=== PATIENT | female | born 1985 | race Caucasian/White ===

== ENCOUNTER 2017-09-24 11:27 | Emergency (ER) | payer SELFPAY ==
[2017-09-24 11:28] VITALS: BP 135/89; PULSE 99; RESP 16; TEMP 36.3; O2SAT 100; BMI 22.8
== END 2017-09-24 12:45 | disposition home or self-care (01) ==
LOC: ED 12:40
PROVIDERS: Emergency Provider Emergency Medicine; Family Provider Family Medicine; PCP Family Medicine
DX: R69 Illness, unspecified (principal)

== ENCOUNTER 2018-02-19 14:04 | Emergency (ER) | payer MEDICAID, SELFPAY ==
[2018-02-19 14:05] VITALS: BP 148/90; PULSE 101; RESP 17; TEMP 36.1; O2SAT 100; BMI 24.1
--- NOTE | 2018-02-19 14:22 | ED.VISSUMM ---
- ER Visit Summary Date of Service: 02/19/18 Chief Complaint: [] Intermittent right upper quadrant pain, history of hepatitis C gallstones Suboxone therapy for heroin and other narcotic abuse History of Present Illness: The patient is a 32 F [] has had intermittent right upper quadrant pain for a long time possibly a month, she indicates in the past which has been evaluated for this she is been told is related to her gallbladder she has gallstones is been recommended she have her gallbladder removed but she has declined that, she indicates that usually when she has flareups like this she is treated with antibiotics and her gallbladder pain goes away. She is followed by [facility], her physicians are aware of all the above she indicates she had recent tests for her liver and other screening studies either by the [facility] physicians or her Suboxone therapy physicians that were unremarkable, she was told related to her hepatitis C that she should get on anti-hepatitis C therapy but she has not followed up to do that yet, she has had no vomiting no fever no cough normal bowel bladder habits, she does have a history of distant IVDA heroin abuse but she is not abusing drugs for over a year and she is completely compliant by her history with all of her her Suboxone follow-up and treatment protocol Physical Examination: [] 149/90, afebrile General, no distress resting comfortably HEENT is generally unremarkable The neck is supple no adenopathy Cardiovascular, regular rate and rhythm Lungs, clear bilateral Abdomen, soft nontender she indicates when she does have the pain is in her right upper abdomen but there is no findings on physical exam Extremities, no clubbing cyanosis or edema Neurologic, awake alert answering questions appropriately moving all 4 extremities Test Results: [] Emergency Department Course and Treatment: [] The patient is asking that I simply give her antibiotics for this intermittent pain that she is having explained her that is not the usual therapy, I explained to her we can obtain IV fluids screening labs other imaging studies etc. and then proceed from there she declined that she understood the concept of worsening symptoms complications of gallbladder disease and gallstones, complications that are and could be life threatening complication from hepatitis C she is awake alert competent she is basically refusing ED evaluation prefers to follow-up with her [facility] physicians She indicates that initially she was afraid to pursue further therapy for the hep C or the gallbladder disease such as surgery, at this time I explained her that she should follow-up with physicians as above and she is agreed to do so she will be given Naprosyn which she is able to take Zofran bland diet and return for change in symptoms Treatment Plan: [] Disposition: [] Home stable declined ED evaluation Impression: [] Intermittent right upper quadrant pain, reported history of hepatitis C, gallstones, Suboxone therapy for narcotic drug abuse This note was generated with [employer] dictation software. It may contain incorrect words, spelling, and punctuation that were not noted in review of the chart prior to signing ED Disposition - Plan for ED Patient: Chief Complaint: Abd Pain Referrals: Garret Rees MD [Primary Care Provider] -
--- NOTE | 2018-02-19 14:26 | ED.DCSUM_ITS ---
- ER Visit Summary Date of Service: 02/19/18 Chief Complaint: [] Intermittent right upper quadrant pain, history of hepatitis C gallstones Suboxone therapy for heroin and other narcotic abuse History of Present Illness: The patient is a 32 F [] has had intermittent right upper quadrant pain for a long time possibly a month, she indicates in the past which has been evaluated for this she is been told is related to her gallbladder she has gallstones is been recommended she have her gallbladder removed but she has declined that, she indicates that usually when she has flareups like this she is treated with antibiotics and her gallbladder pain goes away. She is followed by [facility], her physicians are aware of all the above she indicates she had recent tests for her liver and other screening studies either by the [facility] physicians or her Suboxone therapy physicians that were unremarkable, she was told related to her hepatitis C that she should get on anti-hepatitis C therapy but she has not followed up to do that yet, she has had no vomiting no fever no cough normal bowel bladder habits, she does have a history of distant IVDA heroin abuse but she is not abusing drugs for over a year and she is completely compliant by her history with all of her her Suboxone follow-up and treatment protocol Physical Examination: [] 149/90, afebrile General, no distress resting comfortably HEENT is generally unremarkable The neck is supple no adenopathy Cardiovascular, regular rate and rhythm Lungs, clear bilateral Abdomen, soft nontender she indicates when she does have the pain is in her right upper abdomen but there is no findings on physical exam Extremities, no clubbing cyanosis or edema Neurologic, awake alert answering questions appropriately moving all 4 extremities Test Results: [] Emergency Department Course and Treatment: [] The patient is asking that I simply give her antibiotics for this intermittent pain that she is having explained her that is not the usual therapy, I explained to her we can obtain IV fluids screening labs other imaging studies etc. and then proceed from there she declined that she understood the concept of worsening symptoms complications of gallbladder disease and gallstones, complications that are and could be life threatening complication from hepatitis C she is awake alert competent she is basically refusing ED evaluation prefers to follow-up with her [facility] physicians She indicates that initially she was afraid to pursue further therapy for the hep C or the gallbladder disease such as surgery, at this time I explained her that she should follow-up with physicians as above and she is agreed to do so she will be given Naprosyn which she is able to take Zofran bland diet and return for change in symptoms Treatment Plan: [] Disposition: [] Home stable declined ED evaluation Impression: [] Intermittent right upper quadrant pain, reported history of hepatitis C, gallstones, Suboxone therapy for narcotic drug abuse This note was generated with [employer] dictation software. It may contain incorrect words, spelling, and punctuation that were not noted in review of the chart prior to signing ED Disposition - Plan for ED Patient: Chief Complaint: Abd Pain Referrals: Garret Rees MD [Primary Care Provider] -
--- NOTE | 2018-02-19 14:26 | ED.DEP ---
ED Disposition - Plan for ED Patient: Chief Complaint: Abd Pain Instructions: ED Abdominal Pain Unkn Cause, ED Abdominal Pain Gallstone Poss Prescriptions: Ondansetron [Zofran Odt] 4 mg PO Q8H PRN PRN #10 tab PRN Reason: Nausea Naproxen [Naprosyn] 500 mg PO BID PRN #20 tab Referrals: Garret Rees MD [Primary Care Provider] - Additional Instructions: Please follow-up with your [facility] providers for further management of your symptoms as soon as possible
[2018-02-19 14:35] VITALS: TEMP 36.6
== END 2018-02-19 14:48 | disposition home or self-care (01) ==
LOC: ED 14:31
PROVIDERS: Emergency Provider Emergency Medicine; Family Provider Family Medicine; PCP Family Medicine
DX: R10.11 Right upper quadrant pain (principal); B19.20 Unspecified viral hepatitis C without hepatic coma; K80.80 Other cholelithiasis without obstruction; Z87.898 Personal history of other specified conditions; Z79.891 Long term (current) use of opiate analgesic; Z53.29 Procedure and treatment not carried out because of patient's decision for other reasons
CPT/HCPCS: 99282

== ENCOUNTER 2018-03-14 00:57 | Emergency (ER) | payer MEDICAID, SELFPAY ==
[2018-03-14 01:00] VITALS: BP 138/85; PULSE 112; RESP 18; TEMP 37; O2SAT 99; BMI 24.3
--- NOTE | 2018-03-14 01:26 | ED.DCSUM_ITS ---
- ER Visit Summary Date of Service: 03/14/18 Chief Complaint: Facial rash History of Present Illness: The patient is a 32 F presenting for evaluation secondary to a facial rash. Patient reports that over the course of the last week she had a small zit at the angle of her right sided mandible. She reports that she tried to pop this, but over the last 2 days it has become more swollen and more painful. She denies any constitutional symptoms such as fever. She states there is been some spreading rash going down the right side of her neck. Physical Examination: Patient had some triage tachycardia with a heart rate of 112. Well-nourished female no acute distress well-appearing sitting comfortably in the bed. Head is normocephalic. There is evidence of an ulcer at the angle of the patient's right mandible with about 2 cm of surrounding induration but no documents. There is some Descending lymphadenopathy and lymph adenitis on the skin of the anterior cervical lymph nodes, but the neck is otherwise supple with normal range of motion. Test Results: None indicated Emergency Department Course and Treatment: Patient presented secondary to a skin infection. There is no evidence of significant systemic infection or LaMere syndrome. There is also no evidence of fluctuance on my exam, no indication for incision and drainage. Patient will be treated with a course of doxycycline and was instructed on warm compresses and follow-up with primary care. Disposition: Discharge Impression: Facial cellulitis This note was generated with [employer] dictation software. It may contain incorrect words, spelling, and punctuation that were not noted in review of the chart prior to signing ED Disposition - Plan for ED Patient: Disposition: Home or Assisted Living Chief Complaint: Abscess Diagnosis: Facial cellulitis Instructions: ED Cellulitis Facial Prescriptions: Doxycycline 100 mg PO BID #20 cap Referrals: Garret Rees MD [Primary Care Provider] - 3-5 Days
[2018-03-14] MEDS: Doxycycline 100 MG CAPSULE PO (01:33)
[2018-03-14 01:34] VITALS: PULSE 87; RESP 18; O2SAT 98
== END 2018-03-14 01:34 | disposition home or self-care (01) ==
PROVIDERS: Emergency Provider Emergency Medicine; Family Provider Family Medicine; PCP Family Medicine
DX: L03.211 Cellulitis of face (principal); Z72.0 Tobacco use
CPT/HCPCS: 99283

== ENCOUNTER 2018-05-15 13:17 | Observation (INO) | payer MEDICAID, SELFPAY ==
[2018-05-15 13:56] VITALS: BMI 24.4
[2018-05-15 14:00] VITALS: BP 124/89; PULSE 95; RESP 16; TEMP 36.9
--- NOTE | 2018-05-15 14:04 | PCM.HP.STD ---
Problem List (1) Tobacco dependence Status: Chronic Comment: 1 pack/day (2) Cellulitis of left hand Status: Acute (3) Moderate benzodiazepine use disorder Status: Chronic (4) Hepatitis C Status: Chronic Comment: Has never been treated (5) Pyelonephritis Status: Acute (6) Anxiety Status: Chronic (7) Cholelithiasis Status: Chronic (8) Depression Status: Chronic (9) Opiate dependence Status: Chronic (10) Bipolar disorder Status: Chronic History of Present Illness Date of Admission: 05/15/18 Chief Complaint: Presented to the [facility] office requesting inpatient admission for medical stabilization for EtOH, narcotic and benzodiazepine withdrawal The patient is a 33 year old F with a past medical history of bipolar disorder and hepatitis C who presented to the [facility] office at [facility] on 05/15/2018 requesting inpatient admission for medical stabilization for withdrawal from opiates, EtOH and benzodiazepines. She is currently using 1-3 g of intravenous heroin daily, drinking a liter of bourbon daily and taking Benzodiazepines at least 15 days of the month. She is also taking gabapentin and generally takes more than she is prescribed. She is prescribed 300 mg 3 times daily. She usually takes at least 600 mg 3 times daily. The benzo is whatever she can get and includes Klonopin, Xanax, Ativan. She occasionally uses methamphetamine and crack. She smokes 1 pack of cigarettes per day. She is living with her parents and her 8 YO old son also lives with the parents. The grandparents have custody. She was in detox 1 year ago in [place]. She has been clean and sober off and on over the past 10 years. She tells me that she has been using at least 6 months now and possibly longer. She has been using her hands recently to inject and has erythema and pain on the left at the lateral wrist. She denies fevers and rigors but is feeling hot and cold due to the withdrawal at present. She used heroin last night at approximately 10 PM. She had a Xanax to help her sleep and she had bourbon prior to coming to the hospital. She denies nausea and has no no vomiting. or diarrhea. She denies any hx of DT's and also denies seizures. She is being admitted to the hospital for medical stabilization for acute withdrawal from alcohol, opiates and benzodiazepines. Admits to not taking the Lamictal, Seroquel and Elavil that she is prescribed for BPD......because they make her gain weight Past Medical History Past Medical History (Chronic Problems): Chronic Problems Tobacco dependence (Chronic) 1 pack/day Moderate benzodiazepine use disorder (Chronic) Hepatitis C (Chronic) Has never been treated Bipolar disorder (Chronic) Anxiety (Chronic) Depression (Chronic) Opiate dependence (Chronic) Cholelithiasis (Chronic) Allergies No Known Allergies Allergy (Verified 03/14/18 00:58) Home Medications: Ambulatory Orders Medication Instructions Recorded Amitriptyline HCl 50 - 100 mg PO QHS 12/29/16 Topiramate [Topamax] 50 mg PO DAILY 12/29/16 Acetaminophen [Tylenol Extra 1,000 mg PO Q8H PRN #1 tablet 02/02/17 Strength] Quetiapine Fumarate [Quetiapine 150 mg PO QHS 02/02/17 Fumarate ER] busPIRone [Buspirone HCl] 15 mg PO TID 02/02/17 Ondansetron [Zofran Odt] 4 mg PO Q8H PRN PRN #10 tab 02/19/18 Buprenorphine HCl/Naloxone HCl 1.5 each SL DAILY 03/14/18 [Suboxone 2 mg-0.5 mg Sl Film] Doxycycline 100 mg PO BID #20 cap 03/14/18 Surgical History: - - Gastric sleeve, bilateral breast implants and butt lift Psychiatric History: Anxiety, Bipolar, Depression [employer] History: - - Months. In years as she is on depo shots Lives: With Family Smoking Status: Current every day smoker Tobacco Use: Cigarettes Alcohol: Heavy - 1 L of bourbon daily Drugs: Heroin, - - Benzodiazepines, crack, methamphetamine - *Family History Maternal History Items: Heart Disease, Hypertension, - Review of Systems Constitutional: Reports: Malaise. Denies: Anorexia, Chills, Fever, Weight Change HEENT: Denies: Head Aches, Sinus Congestion, Sinus Drainage Cardiovascular: Denies: Chest Pain, Palpitations Respiratory: Denies: Cough, Shortness of breath at rest, Sputum production Gastrointestinal: Reports: Constipation. Denies: Abdominal Pain, Diarrhea, Nausea, Vomiting Genitourinary: Denies: Dysuria Gynecological: Reports: - - periods are irregular Musculoskeletal: Reports: Muscle pain. Denies: Joint Pain, Joint Tenderness Skin: Reports: - - she has an erythematous area on the lateral left wrist.. Denies: Jaundice, Rash, Wounds Neurological: Denies: Focal weakness, Numbness, Tingling, Tremor, Seizures Psychiatric: Denies: Anxiety, Depression, Homicidal Ideations, Suicidal Ideations Endocrine: Denies: Change in Body Habitus Hematologic/ Lymphatic: Denies: Easy Bruising, Easy Bleeding, Hx of blood clot VTE Information - Inpt Only VTE Present on Admission: No VTE Mechan Device Prophylaxis: None VTE Pharm Prophylaxis ordered?: No Reason prophylaxis not ordered:: Treatment Not Indicated - pt is young and she is amulatory Patient Problems: Active and Suspected Problems Cellulitis of left hand (Acute) - Physical Exam General: Alert, Oriented x3, Cooperative, No apparent distress, Well developed HEENT: Atraumatic, PERRLA, EOMI, Normocephalic Oral: Moist Mucosa Neck: Supple, No JVD, Negative Carotid Bruits, No Nodes, No Nuchal Rigidity, Trachea Midline Lungs: Clear to auscultation, Normal air movement Cardiovascular: Regular rate, Regular Rhythm, Normal S1, Normal S2, No murmurs, No rub noted, No Gallop Abdomen: Bowel Sounds Present, Soft, Non Tender, Non-Distended Extremities: No clubbing, No cyanosis, No edema, Capillary Refill Less than 3 Seconds, Peripheral Pulses Normal Skin: No rashes, No breakdown, - - she has an area of erythema and increased warmth on the lateral aspect of the left wrist.....there is no fluctuance and no purulent discharge. Musculoskeletal: No Tenderness to Palpation of Joints or Extremities, No Muscle Wasting Neurological: Cranial nerves II-XII grossly intact, Neuro grossly intact Psych/Mental Status: Normal Affect, Appropriate, - - tearful Body Mass Index (BMI) 24.3 Assessment/Plan All Active Problems Cellulitis of left hand (Acute) Pyelonephritis (Acute) Sepsis (Ruled-out) Impressions 1. acute opiate withdrawal 2. acute ETOH withdrawal 3. hx of BPD - non-compliant with meds because they make her gain weight 4. hep C - rarely shares needles, only when she has to 5. tobacco dependence 6. cellulitis of the left hand/wrist CBC, CMP, urine drug screen, alcohol level test initiate general admission orders for [facility] patients Intiate order set for opiate withdrawal and alcohol withdrawal [facility] rep to follow pt in the hospital and develop a plan for treatment at [place] smoking cessation counselling CLonidine for HTN if sys>150 or diastolic > 85 Hepatitis ABC panel, HIV Continue Gabapentin to prevent acute withdrawal....300 mg BID and 600 mg at HS Augmentin 875 mg BID
[2018-05-15] MEDS: Acetaminophen 500 MG Tablet PO (14:39)
[2018-05-15 15:27] LABS: Amphetamine Urine VISTA NEGATIVE (<1000 ng/mL); Barbiturate Urine VISTA NEGATIVE (< 200 ng/mL); Benzodiazepine Urine VISTA POSITIVE (< 200 ng/mL); Cocaine Urine VISTA POSITIVE (< 300 ng/mL); Ecstacy Urine VISTA NEGATIVE (< 500 ng/mL); Methadone Urine VISTA NEGATIVE (< 300 ng/mL); PCP Urine VISTA NEGATIVE (< 25 ng/mL); THC Urine VISTA NEGATIVE (< 50 ng/mL); Vista UDS pH Range 5
[2018-05-15 15:54] LABS: Internal QC Validated? YES +Cl - CLEAR BKGD; Pregnancy, Urine Negative Negative
[2018-05-15] MEDS: LORazepam 1 MG Tablet PO ×3 (16:01→22:11)
[2018-05-15] MEDS: Ondansetron ODT 4 MG Tablet PO ×2 (16:01→22:11)
[2018-05-15] MEDS: Methocarbamol 750 MG Tablet PO (16:01)
[2018-05-15] MEDS: Buprenorphine HCl 2 MG TAB.SUBL 4 MG SL ×2 (16:02→22:11)
[2018-05-15 16:39] LABS: Absolute Lymphocyte Count 3.69 X10^3/ul (0.83-4.51); Absolute Neutrophil Count 4.9 X10^3/uL (2.0-7.7); Basophil# 0.05 X10^3/uL; Basophil% 0.5 % (0-1); Eosinophil# 0.42 X10^3/uL; Eosinophils% 4.4 % (0-5); Hematocrit 32.1 % (37-47); Hemoglobin 10.1 g/dl (12.0-15.0); Lymphocyte # 3.69 X10^3/ul (4.0); Lymphocyte % 38.3 % (19-41); Mean Corp Hgb Conc 31.5 g/gl (32-36); Mean Corpuscular Volume 95.3 fL (81-99); Mean Platelet Vol. 8.5 fl (6.2-12.0); Monocyte# 0.58 X10^3/uL; Neutrophil # 4.87 X10^3/uL (2.7-7.7); Neutrophil % 50.6 % (47-70); POSITIVE COUNT NO; POSITIVE DIFFERENTIAL NO; POSITIVE MORPHOLOGY NO; Platelet Count 340 K/mm3 (150-450); RBC Distribution Width SD 55.9 fl (35.1-43.9); Red Blood Count 3.37 M/mm3 (4.2-5.4); White Blood Count 9.6 K/mm3 (4.4-11.0)
[2018-05-15 16:43] LABS: Prothrombin Time (Protime)PT. 12.9 SECONDS (11.7-14.9)
[2018-05-15] MEDS: Amox/Clavulanate 875 MG Tablet PO ×2 (16:44→22:12)
[2018-05-15] MEDS: Gabapentin 300 MG Capsule PO (16:47)
[2018-05-15 16:51] LABS: ALB/GLOB Ratio 0.7 RATIO (0.9-2.4); AST(SGOT) 24 U/L (15-37); Alanine Aminotransfer ALT/SGPT 26 U/L (13-56); Albumin, Serum 2.8 g/dL (3.2-5.0); Alkaline Phosphatase 97 U/L (45-117); Anion Gap 7 (5-15); BUN 6 mg/dL (7-18); Chloride 110 mmol/L (98-107); Creatinine, Serum 0.67 mg/dL (0.55-1.02); EST Glomerular Filtration Rate 109 mL/min (>60); Est Glom Filt Rate - Afr Amer 132 mL/min (>60); Globulin 4.3 g/dL (2.2-4.2); Glucose 112 mg/dL (74-106); Potassium 3.1 mmol/L (3.5-5.1); Protein, Total 7.1 g/dL (6.4-8.2); Sodium Level 144 mmol/L (136-145)
[2018-05-15 17:04] LABS: Alcohol, Blood (Medical)-Serum < 3.0 mg/dL
[2018-05-15 17:19] LABS: Pregnancy, Serum, hCG Quali. NEGATIVE Negative (0-9 Nonpreg)
[2018-05-15 18:09] LABS: HIV - WCH Non-Reactive (Nonreactive)
[2018-05-15 18:58] VITALS: BP 111/70; PULSE 103; RESP 14; TEMP 37.3
--- NOTE | 2018-05-15 19:33 | NURSING ---
pt home meds are locked in narc [facility] med room
[2018-05-15 22:00] VITALS: BP 122/83; PULSE 89; RESP 18; TEMP 36.4
[2018-05-15] MEDS: cloNIDine HCl 0.1 MG Tablet PO (22:11)
[2018-05-15] MEDS: Dicyclomine 10 MG Capsule 20 MG PO (22:11)
[2018-05-15] MEDS: Nicotine Polacrilex 2 MG GUM PO (22:11)
[2018-05-15] MEDS: Gabapentin 600 MG Tablet PO (22:12)
[2018-05-15] MEDS: hydrOXYzine PAM 25 MG Capsule 50 MG PO (23:15)
[2018-05-16 02:00] VITALS: BP 115/78; PULSE 90; RESP 18; TEMP 36.6
[2018-05-16] MEDS: cloNIDine HCl 0.1 MG Tablet PO ×3 (02:27→10:02)
[2018-05-16] MEDS: Methocarbamol 750 MG Tablet PO (02:27)
[2018-05-16] MEDS: LORazepam 1 MG Tablet PO ×3 (02:27→09:58)
[2018-05-16] MEDS: Buprenorphine HCl 2 MG TAB.SUBL 4 MG SL (06:47)
[2018-05-16 06:49] VITALS: BP 126/82; PULSE 92; RESP 18; TEMP 36.6
[2018-05-16 09:56] VITALS: BP 109/68; PULSE 86; RESP 18; TEMP 36.7
[2018-05-16] MEDS: hydrOXYzine PAM 25 MG Capsule 50 MG PO (09:58)
[2018-05-16] MEDS: Gabapentin 300 MG Capsule PO (09:59)
[2018-05-16] MEDS: Amox/Clavulanate 875 MG Tablet PO (09:59)
[2018-05-16] MEDS: Multivitamins,Therapeutic Tablet 1 TABLET PO (09:59)
[2018-05-16] MEDS: Dicyclomine 10 MG Capsule 20 MG PO (09:59)
[2018-05-16] MEDS: Folic Acid 1 MG Tablet PO (10:00)
[2018-05-16] MEDS: Thiamine Hydrochloride 100 MG Tablet PO (10:00)
[2018-05-16] MEDS: Ondansetron ODT 4 MG Tablet PO (10:02)
--- NOTE | 2018-05-16 11:12 | PN_ITS ---
Subjective: All events of the past 24 hours have been reviewed. Afebrile, vital signs stable. Hemoglobin is mildly decreased at 10.1 with a normal MCV but an increased RDW at 16. Potassium was low at 3.1. Urine test was negative. Urine drug screen is positive for opiates, benzodiazepines and cocaine. Hepatitis panel is pending. HIV is nonreactive. Tells me that she is not doing well and she is requesting we increase the Suboxone dose. Wants he mother to take her home but, the mother told her she has to stay and she would not be taking her home. Security had to be called to get her to give the mother back her car keys. The patient's son is with her mother and the patient is trying to manipulate the son into saying he needs her at home......he tells her he wants her to stay and then is huddled up against his grandmother. Mother left with the son and the pt left AMA after that. She left her meds in the hospital. - Physical Exam Vital Signs Temp Pulse Resp BP 98.1 F 86 18 109/68 05/16/18 09:56 05/16/18 09:56 05/16/18 09:56 05/16/18 09:56 Weight: 160 lb 8 oz Body Mass Index (BMI) 24.4 Intake and Output for Last 24 Hours 05/14/18 05/15/18 05/16/18 23:59 23:59 23:59 Intake Total 400 / 400 360 / 360 Balance 400 / 400 360 / 360 Laboratory Tests Past 24 Hrs 05/15/18 05/15/18 05/15/18 14:35 14:35 16:15 WBC RBC Hgb Hct MCV MCH MCHC RDW RDW Differential Plt Count MPV Immature Gran % (Auto) Neut % (Auto) Lymph % (Auto) [place] % (Auto) Eos % (Auto) Baso % (Auto) Absolute Neuts (auto) Absolute Lymphs (auto) Total Counted PT INR Sodium Potassium Chloride Carbon Dioxide Anion Gap BUN Creatinine Estim Creat Clear Calc Est GFR (MDRD) Af Amer Est GFR (MDRD) Non-Af BUN/Creatinine Ratio Glucose Calcium Total Bilirubin AST ALT Alkaline Phosphatase Total Protein Albumin Globulin Albumin/Globulin Ratio Serum , Qual Urine Test Negative Urine Opiates Screen POSITIVE H Urine Methadone Screen NEGATIVE Ur Barbiturates Screen NEGATIVE Ur Phencyclidine Scrn NEGATIVE Ur Amphetamines Screen NEGATIVE U Methamphetamin-MDMA NEGATIVE U Benzodiazepines Scrn POSITIVE H Urine Cocaine Screen POSITIVE H U Cannabinoids Screen NEGATIVE Ur Drug Screen Comment Ethyl Alcohol Hepatitis A IgM Ab Pending Hepatitis A Ab Total Pending Hep Bs Antigen Pending Hep B Core Total Ab Pending Hep B Core IgM Ab Pending HIV 1&2 Antibody 05/15/18 05/15/18 05/15/18 16:15 16:15 16:15 WBC 9.6 RBC 3.37 L Hgb 10.1 L Hct 32.1 L MCV 95.3 MCH 30.0 MCHC 31.5 L RDW 16.0 H RDW Differential 55.9 H Plt Count 340 MPV 8.5 Immature Gran % (Auto) 0.200 Neut % (Auto) 50.6 Lymph % (Auto) 38.3 [place] % (Auto) 6.0 Eos % (Auto) 4.4 Baso % (Auto) 0.5 Absolute Neuts (auto) 4.9 Absolute Lymphs (auto) 3.69 Total Counted Not Reportable PT 12.9 INR 1.0 Sodium Potassium Chloride Carbon Dioxide Anion Gap BUN Creatinine Estim Creat Clear Calc Est GFR (MDRD) Af Amer Est GFR (MDRD) Non-Af BUN/Creatinine Ratio Glucose Calcium Total Bilirubin AST ALT Alkaline Phosphatase Total Protein Albumin Globulin Albumin/Globulin Ratio Serum , Qual Urine Test Urine Opiates Screen Urine Methadone Screen Ur Barbiturates Screen Ur Phencyclidine Scrn Ur Amphetamines Screen U Methamphetamin-MDMA U Benzodiazepines Scrn Urine Cocaine Screen U Cannabinoids Screen Ur Drug Screen Comment Ethyl Alcohol Hepatitis A IgM Ab Hepatitis A Ab Total Hep Bs Antigen Hep B Core Total Ab Hep B Core IgM Ab HIV 1&2 Antibody Non-Reactive 05/15/18 05/15/18 05/15/18 16:15 16:15 16:15 WBC RBC Hgb Hct MCV MCH MCHC RDW RDW Differential Plt Count MPV Immature Gran % (Auto) Neut % (Auto) Lymph % (Auto) [place] % (Auto) Eos % (Auto) Baso % (Auto) Absolute Neuts (auto) Absolute Lymphs (auto) Total Counted PT INR Sodium 144 Potassium 3.1 L Chloride 110 H Carbon Dioxide 27.0 Anion Gap 7 BUN 6 L Creatinine 0.67 Estim Creat Clear Calc 121.60 Est GFR (MDRD) Af Amer 132 Est GFR (MDRD) Non-Af 109 BUN/Creatinine Ratio 9.0 L Glucose 112 H Calcium 8.0 L Total Bilirubin 0.10 L AST 24 ALT 26 Alkaline Phosphatase 97 Total Protein 7.1 Albumin 2.8 L Globulin 4.3 H Albumin/Globulin Ratio 0.7 L Serum , Qual NEGATIVE Urine Test Urine Opiates Screen Urine Methadone Screen Ur Barbiturates Screen Ur Phencyclidine Scrn Ur Amphetamines Screen U Methamphetamin-MDMA U Benzodiazepines Scrn Urine Cocaine Screen U Cannabinoids Screen Ur Drug Screen Comment Ethyl Alcohol < 3.0 Hepatitis A IgM Ab Hepatitis A Ab Total Hep Bs Antigen Hep B Core Total Ab Hep B Core IgM Ab HIV 1&2 Antibody Medical Necessity - Tobacco Use Smoking Status: Current every day smoker Tobacco Use: Cigarettes Assessment/Plan All Active Problems Cellulitis of left hand (Acute) Pyelonephritis (Acute) Sepsis (Ruled-out)
--- NOTE | 2018-05-16 11:44 | NURSING ---
Dr. Cárdenas made aware that pt left AMA.
--- NOTE | 2018-05-16 18:34 | DS.PCM_ITS ---
Discharge Date and Diagnosis Date of Admission: 05/15/18 Date of Discharge: 05/16/18 - Primary Discharge Diagnosis Acute opiate withdrawal Acute EtOH withdrawal Hypokalemia Mild cellulitis left wrist - Secondary Discharge Diagnosis Chronic Problems Tobacco dependence (Chronic) 1 pack/day Moderate benzodiazepine use disorder (Chronic) Hepatitis C (Chronic) Has never been treated Bipolar disorder (Chronic)-noncompliant with medication because she states they make her gain weight Anxiety (Chronic) Depression (Chronic) Opiate dependence (Chronic) Cholelithiasis (Chronic) Hospital Course and Treatment Imaging Results: Laboratory Tests 05/15/18 05/15/18 05/15/18 Range/Units 16:15 16:15 16:15 WBC (4.4-11.0) K/mm3 RBC (4.2-5.4) M/mm3 Hgb (12.0-15.0) g/dl Hct (37-47) % MCV (81-99) fL MCH (27.0-32.0) pg MCHC (32-36) g/gl RDW (11.6-14.6) % RDW Differential (35.1-43.9) fl Plt Count (150-450) K/mm3 MPV (6.2-12.0) fl Immature Gran % (Auto) (0.0-0.9) % Neut % (Auto) (47-70) % Lymph % (Auto) (19-41) % [place] % (Auto) (0-10) % Eos % (Auto) (0-5) % Baso % (Auto) (0-1) % Absolute Neuts (auto) (2.0-7.7) X10^3/uL Absolute Lymphs (auto) (0.83-4.51) X10^3/ul Total Counted PT (11.7-14.9) SECONDS INR Sodium 144 (136-145) mmol/L Potassium 3.1 L (3.5-5.1) mmol/L Chloride 110 H (98-107) mmol/L Carbon Dioxide 27.0 (21.0-32.0) mmol/L Anion Gap 7 (5-15) BUN 6 L (7-18) mg/dL Creatinine 0.67 (0.55-1.02) mg/dL Estim Creat Clear Calc 121.60 ml/min Est GFR (MDRD) Af Amer 132 (>60) mL/min Est GFR (MDRD) Non-Af 109 (>60) mL/min BUN/Creatinine Ratio 9.0 L (10-20) RATIO Glucose 112 H (74-106) mg/dL Calcium 8.0 L (8.5-10.1) mg/dL Total Bilirubin 0.10 L (0.20-1.00) mg/dL AST 24 (15-37) U/L ALT 26 (13-56) U/L Alkaline Phosphatase 97 (45-117) U/L Total Protein 7.1 (6.4-8.2) g/dL Albumin 2.8 L (3.2-5.0) g/dL Globulin 4.3 H (2.2-4.2) g/dL Albumin/Globulin Ratio 0.7 L (0.9-2.4) RATIO Serum , Qual NEGATIVE (0-9 Nonpreg) Negative Urine Test Negative Urine Opiates Screen (< 300 ng/mL) Urine Methadone Screen (< 300 ng/mL) Ur Barbiturates Screen (< 200 ng/mL) Ur Phencyclidine Scrn (< 25 ng/mL) Ur Amphetamines Screen (<1000 ng/mL) U Methamphetamin-MDMA (< 500 ng/mL) U Benzodiazepines Scrn (< 200 ng/mL) Urine Cocaine Screen (< 300 ng/mL) U Cannabinoids Screen (< 50 ng/mL) Ur Drug Screen Comment Ethyl Alcohol < 3.0 mg/dL HIV 1&2 Antibody (Nonreactive) 05/15/18 05/15/18 05/15/18 Range/Units 16:15 16:15 16:15 WBC 9.6 (4.4-11.0) K/mm3 RBC 3.37 L (4.2-5.4) M/mm3 Hgb 10.1 L (12.0-15.0) g/dl Hct 32.1 L (37-47) % MCV 95.3 (81-99) fL MCH 30.0 (27.0-32.0) pg MCHC 31.5 L (32-36) g/gl RDW 16.0 H (11.6-14.6) % RDW Differential 55.9 H (35.1-43.9) fl Plt Count 340 (150-450) K/mm3 MPV 8.5 (6.2-12.0) fl Immature Gran % (Auto) 0.200 (0.0-0.9) % Neut % (Auto) 50.6 (47-70) % Lymph % (Auto) 38.3 (19-41) % [place] % (Auto) 6.0 (0-10) % Eos % (Auto) 4.4 (0-5) % Baso % (Auto) 0.5 (0-1) % Absolute Neuts (auto) 4.9 (2.0-7.7) X10^3/uL Absolute Lymphs (auto) 3.69 (0.83-4.51) X10^3/ul Total Counted Not Reportable PT 12.9 (11.7-14.9) SECONDS INR 1.0 Sodium (136-145) mmol/L Potassium (3.5-5.1) mmol/L Chloride (98-107) mmol/L Carbon Dioxide (21.0-32.0) mmol/L Anion Gap (5-15) BUN (7-18) mg/dL Creatinine (0.55-1.02) mg/dL Estim Creat Clear Calc ml/min Est GFR (MDRD) Af Amer (>60) mL/min Est GFR (MDRD) Non-Af (>60) mL/min BUN/Creatinine Ratio (10-20) RATIO Glucose (74-106) mg/dL Calcium (8.5-10.1) mg/dL Total Bilirubin (0.20-1.00) mg/dL AST (15-37) U/L ALT (13-56) U/L Alkaline Phosphatase (45-117) U/L Total Protein (6.4-8.2) g/dL Albumin (3.2-5.0) g/dL Globulin (2.2-4.2) g/dL Albumin/Globulin Ratio (0.9-2.4) RATIO Serum , Qual (0-9 Nonpreg) Negative Urine Test Negative Urine Opiates Screen (< 300 ng/mL) Urine Methadone Screen (< 300 ng/mL) Ur Barbiturates Screen (< 200 ng/mL) Ur Phencyclidine Scrn (< 25 ng/mL) Ur Amphetamines Screen (<1000 ng/mL) U Methamphetamin-MDMA (< 500 ng/mL) U Benzodiazepines Scrn (< 200 ng/mL) Urine Cocaine Screen (< 300 ng/mL) U Cannabinoids Screen (< 50 ng/mL) Ur Drug Screen Comment Ethyl Alcohol mg/dL HIV 1&2 Antibody Non-Reactive (Nonreactive) 05/15/18 05/15/18 Range/Units 14:35 14:35 WBC (4.4-11.0) K/mm3 RBC (4.2-5.4) M/mm3 Hgb (12.0-15.0) g/dl Hct (37-47) % MCV (81-99) fL MCH (27.0-32.0) pg MCHC (32-36) g/gl RDW (11.6-14.6) % RDW Differential (35.1-43.9) fl Plt Count (150-450) K/mm3 MPV (6.2-12.0) fl Immature Gran % (Auto) (0.0-0.9) % Neut % (Auto) (47-70) % Lymph % (Auto) (19-41) % [place] % (Auto) (0-10) % Eos % (Auto) (0-5) % Baso % (Auto) (0-1) % Absolute Neuts (auto) (2.0-7.7) X10^3/uL Absolute Lymphs (auto) (0.83-4.51) X10^3/ul Total Counted PT (11.7-14.9) SECONDS INR Sodium (136-145) mmol/L Potassium (3.5-5.1) mmol/L Chloride (98-107) mmol/L Carbon Dioxide (21.0-32.0) mmol/L Anion Gap (5-15) BUN (7-18) mg/dL Creatinine (0.55-1.02) mg/dL Estim Creat Clear Calc ml/min Est GFR (MDRD) Af Amer (>60) mL/min Est GFR (MDRD) Non-Af (>60) mL/min BUN/Creatinine Ratio (10-20) RATIO Glucose (74-106) mg/dL Calcium (8.5-10.1) mg/dL Total Bilirubin (0.20-1.00) mg/dL AST (15-37) U/L ALT (13-56) U/L Alkaline Phosphatase (45-117) U/L Total Protein (6.4-8.2) g/dL Albumin (3.2-5.0) g/dL Globulin (2.2-4.2) g/dL Albumin/Globulin Ratio (0.9-2.4) RATIO Serum , Qual (0-9 Nonpreg) Negative Urine Test Negative Negative Urine Opiates Screen POSITIVE H (< 300 ng/mL) Urine Methadone Screen NEGATIVE (< 300 ng/mL) Ur Barbiturates Screen NEGATIVE (< 200 ng/mL) Ur Phencyclidine Scrn NEGATIVE (< 25 ng/mL) Ur Amphetamines Screen NEGATIVE (<1000 ng/mL) U Methamphetamin-MDMA NEGATIVE (< 500 ng/mL) U Benzodiazepines Scrn POSITIVE H (< 200 ng/mL) Urine Cocaine Screen POSITIVE H (< 300 ng/mL) U Cannabinoids Screen NEGATIVE (< 50 ng/mL) Ur Drug Screen Comment Ethyl Alcohol mg/dL HIV 1&2 Antibody (Nonreactive) none Operations: None Procedures: None Summary of Care Provided: The patient is a 33 year old F with a past medical history of bipolar disorder, hepatitis C, tobacco dependence, opiate dependence and moderate benzodiazepine use disorder who presented to the [facility] at [facility] on 05/15/2018 requesting inpatient admission for medical stabilization for withdrawal from opiates, EtOH and benzodiazepines. She stated she took benzodiazepines a few times a week. At the time of presentation she was noted to have a small area of cellulitis on the left lateral wrist with no purulent discharge and no open wound. This is where she has been injecting and it was erythematous and warm to touch. She was admitted to the [facility] program and the [facility] protocol for opiate withdrawal and EtOH withdrawal was initiated. Lab at admission showed a decreased hemoglobin at 10.1, decreased potassium at 3.1 and was otherwise unremarkable. Serum was negative. The drug screen was positive for opiates, benzodiazepines and cocaine. HIV was negative. Hepatitis panel is pending. Testing was supplemented. Approximately 24 hours after admission the patient pleaded with her mother to take her home with her and her mother stood her ground and told her she would not take her home but could not control if she left AGAINST MEDICAL ADVICE. She did explain to her daughter that she would put her things out on the porch and she could pick them up when she wanted to. Security had to be called to retrieve the mother's car keys from the patient when she would not give them up. The mother left with the patient's son and the patient left AGAINST MEDICAL ADVICE shortly after that. She was drowsy when I saw her in the room but, was able to ambulate. She would not allow me to examine her. I attempted to de-escalate the situation and have the mother and son leave but, the pt would not listen and would not calm down, raciel after I explained she could not have a double dose of Suboxone. She was not diaphoretic and not tachycardic, tachypneic or hypertensive. This note was generated with [employer] dictation software. It may contain incorrect words, spelling, and punctuation that were not noted in checking the note before signing. - Physical Exam Vital Signs Temp Pulse Resp BP 98.1 F 86 18 109/68 05/16/18 09:56 05/16/18 09:56 05/16/18 09:56 05/16/18 09:56 Weight: 160 lb 8 oz Body Mass Index (BMI) 24.4 Intake and Output for Last 24 Hours 05/14/18 05/15/18 05/16/18 23:59 23:59 23:59 Intake Total 400 / 400 360 / 360 Balance 400 / 400 360 / 360 Home Medications: Medications to take at Discharge Amitriptyline HCl 50 - 100 mg PO QHS 12/29/16 Quetiapine Fumarate [Quetiapine Fumarate ER] 300 mg PO QHS 02/02/17 Gabapentin [Neurontin] 300 mg PO TID 05/15/18 Lamotrigine [Lamictal] 100 mg PO DAILY 05/15/18 Primary Care Physician: Garret Rees MD [Primary Care Provider] - Disposition: Against Medical Advice Minutes spent on discharge:: 30 Patient Condition:: Stable Medical Necessity - Tobacco Use Smoking Status: Current every day smoker Tobacco Use: Cigarettes Meaningful Use Info Meaningful Use Diagnoses (Choose all that apply): None applicable Code Visit Inpatient E&M: 28061 Disch Hosp
[2018-05-17 17:13] LABS: HEPATITIS B SURFACE AG Negative (Negative); Hepatitis A AB, Total Negative (Negative); Hepatitis A IgM Antibody Negative (Negative); Hepatitis B Core AB IgM Negative (Negative); Hepatitis B Core Ab Total Negative (Negative)
[2018-05-18 11:17] LABS: Hep B Surface Antibodies Reactive (.)
[2018-05-18 11:41] LABS: Hepatitis C Ab >11.0 s/co ratio (0.0-0.9)
== END 2018-05-16 11:43 | disposition left against medical advice (07) | DRG 770 ==
PROVIDERS: Admitting Provider Internal Medicine; Family Provider Family Medicine; PCP Family Medicine; Referring Provider Internal Medicine; Visit Provider Internal Medicine
DX: F11.23 Opioid dependence with withdrawal (principal); F10.239 Alcohol dependence with withdrawal, unspecified; E87.6 Hypokalemia; L03.114 Cellulitis of left upper limb; F17.210 Nicotine dependence, cigarettes, uncomplicated; F13.239 Sedative, hypnotic or anxiolytic dependence with withdrawal, unspecified; F31.9 Bipolar disorder, unspecified; F41.9 Anxiety disorder, unspecified; Z91.14 Patient's other noncompliance with medication regimen; K80.20 Calculus of gallbladder without cholecystitis without obstruction; B18.2 Chronic viral hepatitis C; Z79.899 Other long term (current) drug therapy
CPT/HCPCS: 36415; 80053; 80307; 80320; 81025; 84703; 85025; 85610; 86703; 86704; 86705; 86706; 86708; 86709; 86803; 87340; 99218; G0378; G0379; G0480

== ENCOUNTER 2019-08-13 20:01 | Emergency (ER) | payer MEDICAID, SELFPAY ==
[2018-05-15 13:56] VITALS: BMI 24.4
[2019-08-13 20:02] VITALS: BP 120/74; PULSE 88; RESP 18; TEMP 36.7; O2SAT 99; BMI 27.7
--- NOTE | 2019-08-13 20:19 | ED.DCSUM_ITS ---
- ER Visit Summary Date of Service: 08/13/19 Chief Complaint: Left flank pain History of Present Illness: The patient is a 34 F past medical history of prior gallstones. Prior and breast implants. Patient states she has had left flank pain which gradual onset for about a week. Associated nausea vomiting. Urinary frequency and urgency. Last menstrual period she said she has not had one for years since she had implanted control. She denies any vaginal bleeding or discharge. She denies any fever. She denies any trauma. She is never had a kidney stone. She denies any gross hematuria. She was sent to [facility]. She is taken some type of [id number] medication and they told her that her UA was inconclusive. And sent her to the ER. Physical Examination: Female no acute distress vital signs stable afebrile. H EENT exam unremarkable. Neck nontender no lymphadenopathy. Lungs clear to auscultation bilaterally. Heart regular rhythm no murmur. Abdomen soft nontender, nondistended normal bowel sounds no peritoneal signs. No hernias or masses. No signs of obstruction. Patient moving all 4 extremities. Neurovascular intact. Nontender without edema. Back nontender no CVA tenderness. Skin unremarkable. Multiple tattoos. Neurologically she is awake and alert with no focal motor deficits. Test Results: Urinalysis shows positive nitrates, 25-50 white cells, 10-25 red cells and 2+ bacteria. Consistent with a UTI. Urine culture sent. Urine test negative. Emergency Department Course and Treatment: Patient's history and exam are consistent with more of a gradual onset of symptoms. Clinically and historically I do not think this is a kidney stone. We will start with a urinalysis. Repeat exam patient doing well at 8:56 PM. She will be given a p.o. Keflex and discharged to home. A urine culture was sent. Treatment Plan: Fluids and rest. Tylenol Motrin for pain. Keflex 750 twice daily for 5 days. Follow-up with her primary care physician if not improving. Disposition: Discharge Impression: Acute left flank pain secondary to UTI This note was generated with [employer] software. It may contain incorrect words, spelling, and punctuation that were not noted in review of the chart prior to signing ED Disposition - Plan for ED Patient: Referrals: Garret Rees MD [Primary Care Provider] -
[2019-08-13 20:29] LABS: Mucous, Urine 0 SEEN /hpf (<or=2+)
[2019-08-13 20:34] LABS: Color, Urine Red (Yellow); Glucose, Dipstick Normal (Normal); Ketone-Dipstick 5 mg/dl (Negative); Leukocyte Esterase-Dipstick 100 /ul (Negative); Nitrite-Dipstick Positive (Negative); Occult Blood-Urine 150 /ul (Negative); Protein-Dipstick 30 mg/dl (Negative); Specific Gravity, Urine 1.015 (1.002-1.030); Urine Urobilinogen 8 mg/dl (Normal)
[2019-08-13 20:39] LABS: Internal QC Validated? YES +Cl - CLEAR BKGD; Pregnancy, Urine Negative Negative; Urine Bilirubin Dipstick 6 mg/dL (Negative)
[2019-08-13 20:40] LABS: Urine Clarity Cloudy (Clear)
[2019-08-13 20:42] LABS: White Blood Cells 25-50 SEEN /hpf (0-5)
[2019-08-13 20:43] LABS: Red Blood Cells-Urine 10-25 SEEN /hpf (0-5)
[2019-08-13 20:44] LABS: Bacteria 2+ /hpf (None Seen); Squamous Epithelial Cells - UA 10-25 SEEN /hpf (5-10)
--- NOTE | 2019-08-13 20:58 | ED.DEP ---
ED Disposition - Plan for ED Patient: Disposition: Home or Assisted Living Instructions: ED CYSTITIS Female Adult Prescriptions: Cephalexin [Keflex] 750 mg PO BID #10 cap Prescription Printed Referrals: Garret Rees MD [Primary Care Provider] - 3-5 Days if not improving Additional Instructions: Fluids and rest. Tylenol and Motrin for pain. The antibiotic Keflex 1 pill twice a day for 5 days. Follow-up with your doctor if not improving. Clinically this appears to be a urinary tract infection should be taken care of by the antibiotic. If not improving then may need to either change antibiotic or give it for a longer period of time.
[2019-08-13] MEDS: Cephalexin 250 MG Capsule 750 MG PO (21:04)
== END 2019-08-13 21:05 | disposition home or self-care (01) ==
PROVIDERS: Emergency Provider Emergency Medicine; PCP Family Medicine
DX: N39.0 Urinary tract infection, site not specified (principal); Z87.19 Personal history of other diseases of the digestive system; Z72.0 Tobacco use
CPT/HCPCS: 81001; 81025; 87077; 87086; 87088; 87186; 99283

== ENCOUNTER 2022-04-05 19:28 | Emergency (ER) | payer MEDICAID, SELFPAY ==
[2022-04-05 19:29] VITALS: BP 126/82; PULSE 84; RESP 16; TEMP 36.4; O2SAT 100; BMI 22.1
--- NOTE | 2022-04-05 22:38 | ED.RN ---
PT NOT IN WAITING ROOM OR ANYWHERE IN TRIAGE AREA. SHE HAD STATED INITIALLY DURING THAT SHE MIGHT NO WAIT TOO LONG AND WOULD JUST LEAVE IF IT TOOK TOO LONG FOR A ROOM.
== END 2022-04-05 21:30 | disposition left against medical advice (07) ==
LOC: ED 22:58
PROVIDERS: PCP Family Medicine
DX: R69 Illness, unspecified (principal); Z53.21 Procedure and treatment not carried out due to patient leaving prior to being seen by health care provider

== ENCOUNTER 2022-04-11 16:11 | Inpatient (IN) | payer MEDICAID, SELFPAY ==
[2022-04-11 16:12] VITALS: BP 117/83; PULSE 83; RESP 18; TEMP 37.1; O2SAT 91; BMI 25.1
--- NOTE | 2022-04-11 16:56 | EX.ED.SAOD ---
HPI History of Present Illness Chief Complaint: Substance Abuse Informant: patient Narrative Narrative: History is a little bit difficult. Although the patient is awake and eating, she gets distracted easily and is not the best informant for details. It sounds like she is under a court order from [place] to go through detox and a substance abuse program. She called [facility] and was referred here. Patient does use fentanyl and heroin. She buys about 3-1/2 g that lasts about a day and a half. She does inject this. She also uses meth that she snorts. She occasionally uses benzodiazepines. She does not really drink alcohol although she has a visit many years ago for alcohol use. She is not having physical complaints now. She does not have any injection site infections. Of note, this patient has injected drugs for many many years. She has extensive track mckenna along her arms. She has been injecting on her legs recently. Currently she states she is not on any prescribed meds. But her med list says a friend. She then states that she is on gabapentin and is taking it now but I am not 100% sure that is true because getting the answer consistent is very difficult. [facility] Medical History (Updated 04/12/22 @ 00:[address] Bong Beverly MD) Anxiety and depression Bipolar disorder Hepatitis C History of alcohol abuse Polysubstance abuse Home Medications amitriptyline 50 mg tablet 50 - 100 mg PO QHS sleep 12/29/16 [History Last Taken Unknown] quetiapine 150 mg tablet,extended release 24 hr 300 mg PO QHS sleep 02/02/17 [History Last Taken Unknown] gabapentin 300 mg capsule (Neurontin) 300 mg PO TID anxiety/pain 05/15/18 [History Last Taken Unknown] Allergy/AdvReac Type Severity Reaction Status Date / Time No Known Allergies Allergy Verified 04/05/22 19:30 Family History Mother Heart disease Hypertension Father Heart disease Hypertension Surgical History H/O gastric sleeve Hx of breast implants, bilateral S/P cosmetic plastic surgery Social History (Updated 04/11/22 @ 17:[address] Teresa Chung MD) household members: none Smoking Status: Current every day smoker tobacco type: cigarettes Smoking packs per day: 0.5 Smoking cigarettes per day: 10.0 alcohol intake: current alcohol intake frequency: 3 or more drinks per day details: Hx heavy intake w/ 1L bourbon/day->now rare heavy intake, last weeks prior. substance use type: crack/cocaine, heroin, amphetamines, IV drugs and other details: Fentanyl, BZD also. ROS ROS ED Constitutional Constitutional ED: Denies chills or fever(s) Eyes Eyes: Denies change in vision ENT ENT ED: Denies sore throat Cardiovascular Cardiovascular: Denies chest pain or palpitations Respiratory/Chest Respiratory/Chest: Denies cough or dyspnea Gastrointestinal Gastrointestinal: Denies abdominal pain, nausea or vomiting Musculoskeletal Musculoskeletal: Denies myalgias Integumentary Reports other Details: Multiple track mckenna but no complaints related to them. ; Denies abscess or rash Psychiatric Psychiatric: Reports anxiety; Denies suicidal ideation Hematologic/Lymphatic Hematologic/Lymphatic: Denies lymphadenopathy EXAM Physical Exam Narrative Exam Narrative: Patient is awake. She is eating Thai fries and drinking Mountain Dew when I walk in the room. But she does seem under the influence of some chemical. She states she last used earlier today but is not sure of the time. HEENT shows normal moist mucous membranes. No acute trauma Neck shows no JVD or meningismus Heart is regular not tachycardic. I do not hear any murmurs. Lungs are clear bilaterally. Abdomen is soft nontender : No CVA or suprapubic tenderness. Extremities show significant prior track mckenna throughout her arms with extensive scarring. She also has track mckenna in her legs with most recent injection in her left proximal lateral thigh Const Vital Signs: 04/11/22 16:12 Temperature 98.8 F Temperature Source Temporal Pulse Rate 83 Respiratory Rate 18 Blood Pressure 117/83 H Blood Pressure Mean 94 Pulse Ox 91 Oxygen Delivery Method Room Air MDM MDM MDM Narrative Medical decision making narrative: After seeing the patient, she did mention to a staff member that she fell and hit her head on Friday and has been sleepy since. Although I do not see a perfecto on her head and she denied any injury recently to me we will get a scan considering the inconsistency of her story. My independent interpretation of her CT shows no acute process. Final reading is the same. was negative. Patient will be admitted. I discussed the case directly with the hospitalist who saw the patient in the emergency department. Lab Data Attestation: I reviewed the patient's lab results. Radiography Diagnostic Testing: Clinical Impression(s) from Imaging Studies Brain CT 04/11/22 17:01 IMPRESSION: Normal unenhanced CT scan of the brain. Electronically Signed: Carlitos Noel MD at 17:52 EST , Discharge Plan Dx/Rx/DC Orders Clinical Impression: Admitted to substance misuse detoxification center, Opioid abuse Disposition Disposition: Acute Care Hospital [facility] Discharge Date/Time: 04/11/22 19:15
--- NOTE | 2022-04-11 17:01 | CT_ITS ---
STUDY: CT BRAIN WITHOUT CONTRAST REASON FOR EXAM: Female, 37 years old. trauma RADIATION DOSAGE (If Supplied By Facility): CTDIvol = ( 44.99 ) mGy, DLP = ( 796.11 ) mGycm TECHNIQUE: Transaxial CT imaging of the brain was performed without administration of intravenous contrast material. Individualized dose optimization techniques were used for this CT. COMPARISON: No relevant priors. FINDINGS: Normal soft tissue structures. Normal calvarium. Normal size ventricles and extra-axial spaces for the patient''s age. Normal white matter tracts of the cerebral hemispheres. Normal basal ganglia and thalami. Normal brainstem. Normal cerebellum. There is no intracranial hemorrhage. There are no findings of an acute ischemic infarction. Normal visualized paranasal sinuses. CT/Brain/Head without Contrast IMPRESSION: Normal unenhanced CT scan of the brain. Electronically Signed: Carlitos Noel MD at 17:52 EST ,
--- NOTE | 2022-04-11 17:03 | CM.ED ---
Social Work Note Referral Source: Case Find Referral Reason: [facility] SYLVIA met with patient and introduced herself and role as [facility] Field Map Editor. Patient was standing beside the hospital bed in street clothes, agreeable to speak with SYLVIA. SW inquired about patient's use and knowledge of [facility] program. Patient had her eyes closed during conversation and standing unstably. Patient reports she wants to detox from mainly opiates and is interested in being connected to a program that can offer her a medication to assist with her sobriety. Patient unable to recall last use but believes she last used yesterday. Patient reports falling on Friday and has been struggling to wake up since the fall. SYLVIA will inform medical staff. SYLVIA then briefly reviewed [facility] rules including patient's items being locked up, no access to her cell phone and meeting with Additions counselor Lila to discuss after care/ discharge planing. Patient voiced understanding. No other needs voiced. SYLVIA informed outside contractor sales Maile of patient's concerns regarding a fall. RN to follow up. SYLVIA contacted Treatment Navigator to inform her of patient being admitted for [facility] program. Lila to follow up to patient tomorrow. Plan: [facility] Ashley Buenrostro MSW, RANDI
--- NOTE | 2022-04-11 17:04 | HP.PCM.HOS_ITS ---
HPI - General General Date of Admission: 04/11/22 Date of Service: 04/11/22 Chief Complaint: Court order for detoxification (Pool) HPI Narrative The patient is a 37 y/o G w/ PMHx: Polysubstance abuse (EtOH abuse prior history w/ 1L bourbon daily remotely w/ currently denying intake secondary she notes to frequent penitentiary time but will still occasionally drink heavy with friends but has not for several weeks she reports, Opiates Fentanyl/Heroin used via IV method w/ 1.5-1.75 gm daily, last use this AM earlier in the day noted to be a mixture, Methamphetamine, usually snorted, Occasional BZD only), Tobacco use, Hepatitis C, Anxiety and Depression/Bipolar disorder who presents to the [facility] ED on 04/11/[address] order from [facility] with last use this AM with no current withdrawal symptoms given recent usage but presented secondary to court requirement. She is currently injecting even into her left thigh. 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 Following ED presentation she also mentioned to staff a recent fall the Friday of the week of presentation with increased fatigue since. We will in the ED included T98.8, heart rate 83, BP 117/83, respiratory rate 18, 91% on room air likely secondary to significant lethargy, CT of the head has been ordered and is pending per ED physician. Hospitalist service requested CBC, CMP, urine drug screen, alcohol level, urine testing as well as HIV and hepatitis panel which are pending. Discussed with ED physician that if CT head does not show any acute intracranial findings we will proceed with admission as long as testing is negative as well. [facility] Medical History (Updated 04/11/22 @ 17:[address] Teresa Chung MD) Anxiety and depression Bipolar disorder Hepatitis C History of alcohol abuse Polysubstance abuse Home Medications amitriptyline 50 mg tablet 50 - 100 mg PO QHS sleep 12/29/16 [History Last Taken Unknown] quetiapine 150 mg tablet,extended release 24 hr 300 mg PO QHS sleep 02/02/17 [History Last Taken Unknown] gabapentin 300 mg capsule (Neurontin) 300 mg PO TID anxiety/pain 05/15/18 [History Last Taken Unknown] Allergy/AdvReac Type Severity Reaction Status Date / Time No Known Allergies Allergy Verified 04/05/22 19:30 Family History Mother Heart disease Hypertension Father Heart disease Hypertension Surgical History H/O gastric sleeve Hx of breast implants, bilateral S/P cosmetic plastic surgery Social History (Updated 04/11/22 @ 17:[address] Teresa Chung MD) household members: none Smoking Status: Current every day smoker tobacco type: cigarettes Smoking packs per day: 0.5 Smoking cigarettes per day: 10.0 alcohol intake: current alcohol intake frequency: 3 or more drinks per day details: Hx heavy intake w/ 1L bourbon/day->now rare heavy intake, last weeks prior. substance use type: crack/cocaine, heroin, amphetamines, IV drugs and other details: Fentanyl, BZD also. ROS ROS Narrative Admission Review of Systems: CONSTITUTIONAL: No weight loss, fever, chills, + weakness or fatigue. HEENT: Eyes: No visual loss, blurred vision, double vision or yellow sclerae. Ears, Nose, Throat: No hearing loss, sneezing, congestion, runny nose or sore throat. SKIN: + Various abrasions, ecchymoses, scratch regions, significant track mckenna to all extremities. CARDIOVASCULAR: No chest pain, chest pressure or chest discomfort, palpitations, edema, orthopnea, syncopal events. RESPIRATORY: No shortness of breath, cough or sputum, wheezing, hemoptysis. GASTROINTESTINAL: No anorexia, nausea, vomiting or diarrhea, abdominal pain, irias destiny, BRBPR. GENITOURINARY: No dysuria, frequency, urgency or retention. NEUROLOGICAL: + headache with recent fall with lethargy she reports following, No specific otherwise reported dizziness, syncope, paralysis, ataxia, numbness or tingling in the extremities, focal weakness, change in bowel or bladder control, seizure. MUSCULOSKELETAL: + muscle, back pain, joint pain or stiffness. HEMATOLOGIC: No anemia, bleeding or bruising. LYMPHATICS: No enlarged nodes. No history of splenectomy. PSYCHIATRIC: + history of depression or anxiety. ENDOCRINOLOGIC: No reports of sweating, cold or heat intolerance. No polyuria or polydipsia. ALLERGIES: No history of asthma, hives, eczema or rhinitis. Vital Signs Vital Signs Vital Signs: 04/11/22 16:12 Temperature 98.8 F Temperature Source Temporal Pulse Rate 83 Respiratory Rate 18 Blood Pressure 117/83 H Blood Pressure Mean 94 Pulse Ox 91 Oxygen Delivery Method Room Air Weight Weight: 170 lb Body Mass Index (BMI) 25.1 Physical Exam Narrative Physical Examination: General: Awake, alert, oriented to self, place and recent events but very slow to answer, it appears as if she is under the influence but again CT head is pending, remains cooperative and following commands, seated upright in the ED bed, no acute distress. Skin: Normal color, normal turgor, no icterus, no cyanosis except for significant very staged ecchymoses, abrasions, scratched regions, diffuse extremity track. HEENT: AT/NC, EOMI, PERRLA, dry MM, no carotid bruits or JVD noted. Lungs: Mildly diminished, greater bases, appropriate effort no rales, ronchi or wheezing. Heart: Currently regular rate and rhythm; no gallop, rub audible. Abdomen: Soft, overweight, NTTP, ND, distant normal BS, mild HM. Extremities: No cyanosis, clubbing, or edema, see skin. Neurological: Patient awake, alert, oriented as noted, cognitive function appears impaired currently, suspect cannot baseline intact; pupils equally reactive to light and accommodation, cranial nerves grossly normal, moving all 4 extremities, no focal deficits, strength moderately global decrease secondary to lethargy as noted. Psychiatric: Affect appears flat, fatigue no acute evidence of depressive or anxiety feelings but does have underlying history. Assessment & Plan Assessment/Plan (1) Admitted to substance misuse detoxification center: PLAN: Plan The patient is a 37 y/o G w/ PMHx: Polysubstance abuse (EtOH abuse prior history w/ 1L bourbon daily remotely w/ currently denying intake secondary she notes to frequent penitentiary time but will still occasionally drink heavy with friends but has not for several weeks she reports, Opiates Fentanyl/Heroin used via IV method w/ 1.5-1.75 gm daily, last use this AM earlier in the day noted to be a mixture, Methamphetamine, usually snorted, Occasional BZD only), Tobacco use, Hepatitis C, Anxiety and Depression/Bipolar disorder who presents to the [facility] ED on 04/11/[address] order from [facility] with last use this AM with no current withdrawal symptoms. #1. Chronic opiate abuse with requested detoxification: As long as CT head without acute intracranial findings and testing negative will admit to [facility], CBC/CMP/UDS/EtOH requested per hospitalist service, will initiate and continue on protocol with tapering course of Subutex, as needed tylenol, ibuprofen, bowel regimen, gabapentin, Bentyl, Vistaril, methocarbamol, clonidine, PRN nightly trazodone for insomnia, IV fluids, IV antiemetics. Once patient clinically improved and completion of taper nearing will plan consultation with case management for transition to next level of rehabilitation care. #2. 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 Patient currently not candidate for hep C treatment currently as needs to be clean, sober x 6 months, documented attendance NA or AA meetings, counseling and ongoing negative drug screens. #3. Anxiety and depression/bipolar disorder: Not currently on medications per review of current list, would strongly benefit from counseling and likely medications given her underlying abuse history this is probably contributing, case management/[facility] consulted #4. History of intermittent alcohol consumption, previously significantly heavy: Patient prior 1 L bourbon daily and she reports that she is not been doing this secondary to frequent penitentiary time, currently last heavy intake was approximately 2 weeks prior and this is a regular specifically only when she is with 2 other friends, mag and Phos will be obtained to be cautious and if any concerning symptoms low threshold to initiate CIWA protocol as well as alcohol w ithdrawal program. #5. Tobacco use: Encourage tobacco cessation, RT consulted for education, NR ordered. #6. DVT Prophylaxis: Low risk, encourage ambulation. Admission Evaluation Time spent evaluating chart, patient history, patient evaluation, care planning and discussion with specialists: 60 minutes. Charges/Coding Visit Charges Inpatient E&M: 01545 Init Hosp L2
--- NOTE | 2022-04-11 17:07 | NURSING ---
DR WINTER FOR DR ANDUJAR
[2022-04-11 18:25] LABS: Internal QC Validated? YES +Cl - CLEAR BKGD; Pregnancy, Urine Negative Negative
[2022-04-11 18:34] VITALS: BP 122/85; PULSE 75; RESP 16; TEMP 37; O2SAT 99
[2022-04-11 18:49] LABS: Amphetamine Urine VISTA POSITIVE (<1000 ng/mL); Barbiturate Urine VISTA NEGATIVE (< 200 ng/mL); Benzodiazepine Urine VISTA NEGATIVE (< 200 ng/mL); Cocaine Urine VISTA POSITIVE (< 300 ng/mL); Ecstacy Urine VISTA POSITIVE (< 500 ng/mL); Methadone Urine VISTA NEGATIVE (< 300 ng/mL); PCP Urine VISTA NEGATIVE (< 25 ng/mL); THC Urine VISTA NEGATIVE (< 50 ng/mL); Vista UDS pH Range 5
[2022-04-11 18:57] LABS: Absolute Lymphocyte Count 1.92 X10^3/uL (0.83-4.51); Absolute Neutrophil Count 2.9 X10^3/uL (2.0-7.7); Basophil# 0.02 X10^3/uL; Basophil% 0.4 % (0-1); Eosinophil# 0.35 X10^3/uL; Eosinophils% 6.3 % (0-5); Hematocrit 33.8 % (37-47); Hemoglobin 10.4 g/dL (12.0-15.0); Lymphocyte # 1.92 X10^3/ul (0.83-4.51); Lymphocyte % 34.5 % (19-41); Mean Corp Hgb Conc 30.8 g/dL (32-36); Mean Corpuscular Hgb 26.8 pg (27.0-32.0); Mean Corpuscular Volume 87.1 fL (81-99); Mean Platelet Vol. 9.5 fl (6.2-12.0); Monocyte# 0.32 X10^3/uL; Monocyte% 5.7 % (0-10); NRBC Flagged by Analyzer 0 % (0-5); Neutrophil # 2.94 X10^3/uL (2.7-7.7); Neutrophil % 52.7 % (47-70); Platelet Count 247 K/mm3 (150-450); RBC Distribution Width CV 14.9 % (11.6-14.6); RBC Distribution Width SD 47.7 fl (35.1-43.9); Red Blood Count 3.88 M/mm3 (4.2-5.4); White Blood Count 5.6 K/mm3 (4.4-11.0)
[2022-04-11 19:12] LABS: Alcohol, Blood (Medical)-Serum < 3.0 mg/dL
[2022-04-11 19:16] LABS: ALB/GLOB Ratio 0.7 RATIO (0.9-2.4); AST(SGOT) 24 U/L (15-37); Alanine Aminotransfer ALT/SGPT 25 U/L (13-56); Albumin, Serum 3.2 g/dL (3.2-5.0); Alkaline Phosphatase 85 U/L (45-117); Anion Gap 6 (5-15); BUN 6 mg/dL (7-18); BUN/Creat Ratio 9.9 RATIO (10-20); Calcium,Total 8.8 mg/dL (8.5-10.1); Chloride 105 mmol/L (98-107); Creatinine, Serum 0.61 mg/dL (0.55-1.02); EST Glomerular Filtration Rate 119 mL/min (>60); Est Glom Filt Rate - Afr Amer 144 mL/min (>60); Estimated Creatinine Clearance 133.24 ml/min; Globulin 4.5 g/dL (2.2-4.2); Glucose 105 mg/dL (74-106); Potassium 3.7 mmol/L (3.5-5.1); Protein, Total 7.7 g/dL (6.4-8.2); Sodium Level 142 mmol/L (136-145)
[2022-04-11 19:33] VITALS: BP 139/102; PULSE 66; RESP 18; TEMP 36.4; O2SAT 100
[2022-04-11 19:37] VITALS: BMI 25.2
[2022-04-11 19:44] LABS: HIV - WCH Non-Reactive (Nonreactive)
[2022-04-11 19:53] LABS: Hepatitis B Surface Antibody Reactive; Hepatitis B Surface Antigen Non-Reactive (Nonreactive); Hepatitis C Antibody Preliminary Reactive (Nonreactive)
[2022-04-11] MEDS: 0.9% Saline Lock 10 ML Syringe IV (20:26)
[2022-04-11 21:36] LABS: Chlamydia Trachomatis by PCR Negative (Negative); Neisserai gonorrhoeae by PCR Negative (Negative); Probe Check PASS; Sample Adequacy Control PASS; Specimen Processing Control PASS
[2022-04-12 00:05] VITALS: BP 115/74; PULSE 98; RESP 18; TEMP 37.3; O2SAT 97
[2022-04-12 04:55] VITALS: BP 127/86; PULSE 88; RESP 18; TEMP 36.6; O2SAT 100
[2022-04-12] MEDS: Dicyclomine 10 MG Capsule 20 MG PO ×2 (05:07→18:12)
[2022-04-12] MEDS: Ibuprofen 600 MG Tablet PO ×2 (05:07→18:12)
[2022-04-12] MEDS: Methocarbamol 750 MG Tablet 1500 MG PO ×3 (05:07→18:12)
[2022-04-12] MEDS: Gabapentin 300 MG Capsule PO ×2 (05:07→18:12)
[2022-04-12] MEDS: Buprenorphine HCl 2 MG TAB.SUBL SL ×3 (05:11→20:19)
--- NOTE | 2022-04-12 07:43 | PN.HOSP_ITS ---
Reason for Visit Reason for Visit: Diagnoses Other specified health status (04/11/22) Subjective Subjective Patient is a 37-year-old female with history of polysubstance abuse admitted with acute opioid withdrawal Objective Data Objective Data Vital Signs: Vital Signs Temp Pulse Resp BP Pulse Ox O2 Del Method 98 F 88 18 127/86 H 100 Room Air 04/12/22 04:55 04/12/22 04:55 04/12/22 04:55 04/12/22 04:55 04/12/22 04:55 04/12/22 04:55 Oxygen Delivery Method Room Air Weight: 77.1 kg Body Mass Index (BMI) 25.2 Intake & Output: Intake and Output for Last 24 Hours 04/10/22 04/11/22 04/12/22 23:59 23:59 23:59 Intake Total 700 / 700 Output Total 400 / 400 Balance 300 / 300 Lab / Micro Data Result Diagrams: 04/11/22 18:46 04/11/22 18:46 Labs: Laboratory Results - last 24 hr 04/11/22 18:00: Urine Opiates Screen POSITIVE H, Urine Methadone Screen NEGATIVE, Ur Barbiturates Screen NEGATIVE, Ur Phencyclidine Scrn NEGATIVE, Ur Amphetamines Screen POSITIVE H, MDMA (Ecstasy) Screen POSITIVE H, U Benzodiazepines Scrn NEGATIVE, Urine Cocaine Screen POSITIVE H, U Cannabinoids Screen NEGATIVE, Ur Drug Screen Comment 04/11/22 18:00: Urine Test Negative 04/11/22 18:46: WBC 5.6, RBC 3.88 L, Hgb 10.4 L, Hct 33.8 L, MCV 87.1, MCH 26.8 L, MCHC 30.8 L, RDW Std Deviation 47.7 H, RDW Coeff of Judd 14.9 H, Plt Count 247, MPV 9.5, Immature Gran % (Auto) 0.400, Neut % (Auto) 52.7, Lymph % (Auto) 34.5, [place] % (Auto) 5.7, Eos % (Auto) 6.3 H, Baso % (Auto) 0.4, Absolute Neuts (auto) 2.9, Absolute Lymphs (auto) 1.92, Nucleated RBC % 0 04/11/22 18:46: Sodium 142, Potassium 3.7, Chloride 105, Carbon Dioxide 31.0, Anion Gap 6, BUN 6 L, Creatinine 0.61, Estim Creat Clear Calc 133.24, Est GFR (MDRD) Af Amer 144, Est GFR (MDRD) Non-Af 119, BUN/Creatinine Ratio 9.9 L, Glucose 105, Calcium 8.8, Phosphorus 3.0, Magnesium 2.0, Total Bilirubin 0.20, AST 24, ALT 25, Alkaline Phosphatase 85, Total Protein 7.7, Albumin 3.2, Globulin 4.5 H, Albumin/Globulin Ratio 0.7 L 04/11/22 18:46: Ethyl Alcohol < 3.0 04/11/22 18:46: Hep Bs Antigen Non-Reactive, Hep Bs Antibody Reactive, Hepatitis C Antibody Preliminary Reactive 04/11/22 18:46: HIV 1&2 Antibody Non-Reactive 04/11/22 : Chlam trachomat DNA PCR Negative, N.gonorrhoeae DNA (PCR) Negative Radiography Diagnostic Testing: Radiology Impression Brain CT 04/11/22 17:01 IMPRESSION: Normal unenhanced CT scan of the brain. Electronically Signed: Carlitos Noel MD at 17:52 EST , Physical Exam Narrative GENERAL: in no apparent distress HEENT: Atraumatic; EYES; Anicteric, NECK; supple, normal thyroid, RESPIRATORY: Diminished to auscultation CARDIOVASCULAR: Regular S1 S2, GI: soft, normoactive bowel sounds, : No Renal angle tenderness; EXTREMITIES: No edema, no clubbing, MUSCULOSKELETAL: no muscle wasting NEURO: Awake; no lateralizing signs. SKIN: No Rash Assessment & Plan Assessment/Plan (1) Admitted to substance misuse detoxification center: PLAN: Plan Patient is a 37-year-old female with history of polysubstance abuse admitted with acute opioid withdrawal 1. Acute opioid withdrawal ? Patient has been admitted to regular nursing floor management Subutex taper 2. Polysubstance abuse ? Patient urine tox screen did reveal amphetamines MDMA as well as cocaine. She was counseled on cessation 3. Chronic hep C ?. To follow-up with her primary care provider for treatment once discharged 4. Tobacco dependence - Counseled on cessation, offered nicotine patch for tobacco cravings 5. DVT prophylaxis ? Low risk did encourage ambulation Time spent in the patient's overall evaluation,decision-making process, review of diagnostic data, adjustment of management, discussion with other providers, nursing nursing and ancillary staff involved in patient's care documentation, 38 Minutes Charges/Coding Visit Charges Inpatient E&M: 04124 Subs Hosp L2
[2022-04-12 08:55] VITALS: BP 130/66; PULSE 85; RESP 17; TEMP 36.7; O2SAT 99
[2022-04-12] MEDS: FLU VACC QS2022-23(6MOS UP)/PF 60 MCG/0.5 ML SYRINGE IM (11:16)
[2022-04-12] MEDS: Loperamide 2 MG Capsule PO ×2 (11:23→18:12)
[2022-04-12] MEDS: Ondansetron 8 MG Tablet PO ×2 (11:23→20:20)
[2022-04-12] MEDS: hydrOXYzine PAM 25 MG Capsule 50 MG PO ×2 (11:23→20:19)
[2022-04-12 14:30] VITALS: BP 123/80; PULSE 88; RESP 18; TEMP 37.1; O2SAT 98
[2022-04-12] MEDS: cloNIDine HCl 0.1 MG Tablet PO (18:12)
[2022-04-12 20:08] VITALS: BP 119/76; PULSE 105; RESP 18; TEMP 36.8; O2SAT 98
[2022-04-12] MEDS: Acetaminophen 325 MG Tablet 650 MG PO (20:20)
[2022-04-13 02:28] VITALS: BP 117/72; PULSE 105; RESP 18; TEMP 36.5; O2SAT 97
[2022-04-13] MEDS: Gabapentin 300 MG Capsule PO ×3 (02:38→20:44)
[2022-04-13] MEDS: Methocarbamol 750 MG Tablet 1500 MG PO ×3 (02:38→16:16)
[2022-04-13] MEDS: cloNIDine HCl 0.1 MG Tablet PO (02:38)
[2022-04-13] MEDS: Dicyclomine 10 MG Capsule 20 MG PO ×3 (02:38→16:16)
[2022-04-13] MEDS: hydrOXYzine PAM 25 MG Capsule 50 MG PO ×2 (05:00→16:16)
[2022-04-13] MEDS: Buprenorphine HCl 2 MG TAB.SUBL SL ×3 (05:00→20:44)
[2022-04-13 07:30] VITALS: O2SAT 99
[2022-04-13 07:55] VITALS: BP 130/83; PULSE 106; RESP 18; TEMP 36.6; O2SAT 100
[2022-04-13 12:04] VITALS: BP 108/68; PULSE 95; RESP 18; TEMP 37.8; O2SAT 98
--- NOTE | 2022-04-13 14:42 | ADDICTION ---
This check writer met with PT to conduct ASAM, MSE, AUDIT, DUDIT assessments and to plan for d/c. PT A+Ox4 and participated actively. All assessments completed and placed in PT's chart. PT plans to f/u with inpatient treatment services at [facility], however the beds are currently full. She has an appointment for an assessment on 04/17. PT did not indicate a need for transportation post d/c from [facility].
--- NOTE | 2022-04-13 15:40 | PCM.PN.HOSP ---
Reason for Visit Reason for Visit: Diagnoses Other specified health status (04/11/22) Subjective Subjective Was seen and examined today, she voices no complaints to this examiner. I talked briefly with addiction health and social care teacher about her care, they feel that she could safely be discharged on Friday to follow-up early in the week with outpatient detox. Objective Data Objective Data Vital Signs: Vital Signs Temp Pulse Resp BP Pulse Ox O2 Del Method 100.0 F H 95 18 108/68 98 Room Air 04/13/22 12:04 04/13/22 12:04 04/13/22 12:04 04/13/22 12:04 04/13/22 12:04 04/13/22 12:04 Oxygen Delivery Method Room Air Weight: 77.1 kg Body Mass Index (BMI) 25.2 Intake & Output: Intake and Output for Last 24 Hours 04/11/22 04/12/22 04/13/22 23:59 23:59 23:59 Intake Total 700 / 700 1100 / 1100 Output Total 400 / 400 Balance 300 / 300 1100 / 1100 Lab / Micro Data Result Diagrams: 04/11/22 18:46 04/11/22 18:46 Physical Exam Const alert, oriented x3, no apparent distress and healthy appearing General Appearance: cooperative, well kempt and well developed Orientation / Consciousness: awake, oriented to person, oriented to place and oriented to time HEENT normocephalic and moist oral mucous membranes Eyes PERRL, EOMs intact bilaterally and conjunctivae normal Neck supple, no JVD, thyroid normal and no carotid bruits General: trachea midline Resp normal respiratory effort, no retractions, no use of accessory muscles and clear to auscultation bilaterally Auscultation: Negative for rales, rhonchi or wheezes Cardio regular rate, regular rhythm, S1 normal heart sound, S2 normal heart sound, no murmurs, no rub and no gallops GI normal to inspection, nondistended, normoactive bowel sounds, soft to palpation, non-tender and non-distended Extremity no clubbing, cyanosis or edema Skin no rashes or lesions noted General Skin Exam: no breakdown Neuro oriented x3, CN's II-XII intact bilaterally, no focal motor deficits and no sensory deficits noted Sensorium / Orientation: awake, alert, oriented to person, oriented to place and oriented to time Speech: speech normal Psych affect normal Assessment & Plan Assessment/Plan (1) Opioid abuse: PLAN: Plan 1. Opiate withdrawal-patient does not appear to be symptomatic at this time to this examiner, continue Subutex and other as needed medications. #2 polysubstance abuse-complicates care, medical course, management, and recovery #3 chronic opioid addiction-patient will follow-up as an outpatient with detox at [facility] #4 bipolar disorder-patient is not currently taking any medications Total clinical time spent by myself addressing patient's medical issues, reviewing all the data, and collaborating with patient's care team: 36 minutes Charges/Coding Visit Charges Inpatient E&M: 63840 Subs Hosp L2
[2022-04-13 16:10] VITALS: BP 114/67; PULSE 99; RESP 18; TEMP 36.5; O2SAT 99
[2022-04-13 20:37] VITALS: BP 119/62; PULSE 97; RESP 18; TEMP 36; O2SAT 100
[2022-04-13] MEDS: Ondansetron 8 MG Tablet PO (20:44)
[2022-04-13] MEDS: Senna Tablet 2 TABLET PO (20:44)
[2022-04-13] MEDS: traZODone 100 MG Tablet PO (20:44)
[2022-04-14 03:35] VITALS: BP 116/71; PULSE 85; RESP 18; TEMP 37.1; O2SAT 97
[2022-04-14] MEDS: Buprenorphine HCl 2 MG TAB.SUBL SL (05:50)
[2022-04-14 05:54] VITALS: BP 110/66; PULSE 91; RESP 18; TEMP 37.2; O2SAT 98
[2022-04-14 09:38] VITALS: BP 106/63; PULSE 88; RESP 18; TEMP 37; O2SAT 95
[2022-04-14] MEDS: Dicyclomine 10 MG Capsule 20 MG PO (09:43)
[2022-04-14] MEDS: Methocarbamol 750 MG Tablet 1500 MG PO (09:43)
[2022-04-14] MEDS: Ondansetron 8 MG Tablet PO (09:43)
[2022-04-14] MEDS: hydrOXYzine PAM 25 MG Capsule 50 MG PO (09:43)
--- NOTE | 2022-04-14 11:24 | PCM.PN.HOSP ---
Reason for Visit Reason for Visit: Diagnoses Opioid abuse, uncomplicated (04/11/22) Other specified health status (04/11/22) Subjective Subjective Patient was seen and examined today. She does not have any signs or symptoms of opiate withdrawal at this time, she appears to be resting quietly and voices no complaints. Objective Data Objective Data Vital Signs: Vital Signs Temp Pulse Resp BP Pulse Ox O2 Del Method 98.6 F 88 18 106/63 95 Room Air 04/14/22 09:38 04/14/22 09:38 04/14/22 09:38 04/14/22 09:38 04/14/22 09:38 04/14/22 09:38 Oxygen Delivery Method Room Air Weight: 77.1 kg Body Mass Index (BMI) 25.2 Intake & Output: Intake and Output for Last 24 Hours 04/12/22 04/13/22 04/14/22 23:59 23:59 23:59 Intake Total 700 / 700 1100 / 1100 Output Total 400 / 400 Balance 300 / 300 1100 / 1100 Lab / Micro Data Result Diagrams: 04/11/22 18:46 04/11/22 18:46 Physical Exam Const alert, oriented x3, no apparent distress and healthy appearing General Appearance: cooperative, well kempt and well developed Orientation / Consciousness: awake, oriented to person, oriented to place and oriented to time HEENT normocephalic and moist oral mucous membranes Eyes PERRL, EOMs intact bilaterally and conjunctivae normal Neck supple, no JVD, thyroid normal and no carotid bruits General: trachea midline Resp normal respiratory effort, no retractions, no use of accessory muscles and clear to auscultation bilaterally Auscultation: Negative for rales, rhonchi or wheezes Cardio regular rate, regular rhythm, S1 normal heart sound, S2 normal heart sound, no murmurs, no rub and no gallops GI normal to inspection, nondistended, normoactive bowel sounds, soft to palpation, non-tender and non-distended Extremity no clubbing, cyanosis or edema Skin no rashes or lesions noted General Skin Exam: no breakdown Neuro oriented x3, CN's II-XII intact bilaterally, no focal motor deficits and no sensory deficits noted Sensorium / Orientation: awake and alert Speech: speech normal Psych affect normal Assessment & Plan Assessment/Plan (1) Opioid abuse: PLAN: Plan 1. Opiate withdrawal-patient does not appear to be symptomatic at this time to this examiner, continue Subutex and other as needed medications. The current plan is for the patient to follow-up with 180 this week. #2 polysubstance abuse-complicates care, medical course, management, and recovery #3 chronic opioid addiction-patient will follow-up as an outpatient with detox at [facility] #4 bipolar disorder-patient is not currently taking any medications Total clinical time spent by myself addressing patient's medical issues, reviewing all the data, and collaborating with patient's care team: 35 minutes Charges/Coding Visit Charges Inpatient E&M: 67804 Subs Hosp L2
--- NOTE | 2022-04-14 13:38 | NURSING ---
pt dressed in street clothes, standing at elevator. pt states i would like to leave. This won't affect anything will it? educated on risks/ramifications. will this affect my PO? informed pt that said nurse unsure of ramifications. pt states okay I will leave. pt states she has all of her belongings.
--- NOTE | 2022-04-15 08:00 | DS.PCM_ITS ---
Providers Date of Admission: 04/11/22 Date of Discharge: 04/14/22 Primary Care Physician: Dr. Garret Rees MD Reason For Visit: DETOXIFICATION OPIATES Diagnosis Discharge Diagnosis (1) Opioid abuse: Status: Acute Code(s): F11.10 - Opioid abuse, uncomplicated Plan 1. Opiate withdrawal-patient does not appear to be symptomatic at this time to this examiner, continue Subutex and other as needed medications. The current plan is for the patient to follow-up with 180 this week. #2 polysubstance abuse-complicates care, medical course, management, and recovery #3 chronic opioid addiction-patient will follow-up as an outpatient with detox at [facility] #4 bipolar disorder-patient is not currently taking any medications Total clinical time spent by myself addressing patient's medical issues, gerber roth all the data, and collaborating with patient's care team: 35 minutes Medications at Discharge Home Medications amitriptyline 50 mg tablet 50 - 100 mg PO QHS sleep 12/29/16 quetiapine 150 mg tablet,extended release 24 hr 300 mg PO QHS sleep 02/02/17 gabapentin 300 mg capsule (Neurontin) 300 mg PO TID anxiety/pain 05/15/18 Hospital Course Operations None Procedures None Summary of Care Provided Minutes Spent on Discharge: 31 Hospital Course: This 37-year-old white female was seen in the emergency room at [facility] requesting services for detox from opiates, tox screen was positive for opiates, amphetamines, MDMA, and cocaine. Patient was admitted to [place] [address], she was seen by addiction psychiatric social worker, arrangements were made for the patient to follow-up with [facility] after discharge from the hospital. Orders were entered using the opiate detox order set. There were no untoward events during her hospital stay. On 04/14/2022, patient was seen and examined: On examination she appeared in good health and spirits, she does not appear to be in any distress. Vital signs as documented. Skin warm and dry and without overt rashes. Neck without JVD, thyroid appears normal, trachea is midline, neck is supple. Lungs clear, normal air movement was noted. Heart exam notable for regular rhythm, normal sounds and absence of murmurs, rubs or gallops. Abdomen unremarkable and without evidence of organomegaly, masses, or abdominal aortic enlargement, bowel sounds are present in all 4 quadrants, no abdominal tenderness was noted. Extremities non edematous, no cyanosis was noted, no clubbing was noted. Neuro: Cranial nerves II through XII are grossly intact, no focal motor deficits were noted, sensation to light touch and pinprick is intact, motor exam 5/5 throughout. Psych: Patient is alert and oriented x3, she does not appear anxious or depressed, she does not appear agitated. Patient appears to be medically stable on 04/14/2022, in the afternoon she requested abruptly to leave AMA and was discharged AMA. Weight / BMI Weight Weight: 77.1 kg Body Mass Index (BMI) 25.2 ABG / Lab / Microbiology Data Result Diagrams: 04/11/22 18:46 04/11/22 18:46 Laboratory: Laboratory Results - last 24 hr 04/11/22 18:46: Miscellaneous Test Meaningful Use Info Meaningful Use Diagnoses (Choose all that apply): None applicable Discharge Plan Admission Admit Date/Time: 04/11/22 17:33 Attending Provider: Madi Glez Primary Care Provider: Garret Rees Consulting Providers: Teresa Chung ; Kirill Lepe Discharge Orders/Prescriptions Prescriptions: No Action amitriptyline 50 MG tablet 50 - 100 mg PO QHS quetiapine 150 MG tablet extended release 24 hr 300 mg PO QHS Label Comments: take 1 tablet by mouth at bedtime gabapentin [Neurontin] 300 MG capsule 300 mg PO TID Referrals / Follow Up: Garret Rees MD [Primary Care Provider] - Disposition Disposition (needs filled in before D/C Order can be placed): Home, Self Care Charges/Coding Visit Charges Inpatient E&M: 01438 Disch Hosp >30min
== END 2022-04-14 13:43 | disposition home or self-care (01) | DRG 773 ==
LOC: ED 16:46 → MS3 18:34
PROVIDERS: Admitting Provider Family Medicine; Emergency Provider Emergency Medicine; PCP Family Medicine; Visit Provider Internal Medicine
DX: F11.23 Opioid dependence with withdrawal (principal); F31.9 Bipolar disorder, unspecified; B18.2 Chronic viral hepatitis C; F14.90 Cocaine use, unspecified, uncomplicated; F15.90 Other stimulant use, unspecified, uncomplicated; F17.210 Nicotine dependence, cigarettes, uncomplicated
CPT/HCPCS: 70450; 80053; 80307; 81025; 82077; 83735; 84100; 85025; 86703; 86706; 86803; 87340; 87491; 87591; 99283; 99406; 90686; A4216

== ENCOUNTER 2023-11-06 13:28 | Emergency (ER) | payer MEDICAID, SELFPAY ==
[2023-11-06 13:28] VITALS: BP 159/110; BP 162/101; PULSE 106; PULSE 111; RESP 14; RESP 20; TEMP 36.2; O2SAT 100; BMI 26.6
--- NOTE | 2023-11-06 15:17 | EDS_ITS ---
HPI History of Present Illness Chief Complaint: Other, Pain/Inj Informant: patient Narrative Narrative: Patient 38-year-old female coming in for evaluation after facial injury. Yesterday patient felt dizzy and fell down hitting her head on the countertop. She did not actually pass out or fall to the ground. She did strike her nose and her right upper lip. She states she broke her bridge. She has been having pain and swelling at the bridge of her nose initially had bleeding from her nose and into her mouth. She had a telehealth appointment and was recommend she come to the ER for further evaluation. he states the reason she came to the emergency room is because she noticed a bad smell in her nose and was worried about that. In addition patient states she needs notes because she is under house arrest and needs proof that she went to the emergency room. Patient states has been having intermittent dizziness because of her medications. On the last month she is newly on Abilify as well as gabapentin. She denies associated chest pain, shortness of breath, syncope, abdominal pain or nausea and vomiting. No other complaints or concerns at this time. Denies any headache or vision changes. Patient notes that she does have a history of drug abuse and is currently on Suboxone as well. Denies any recent alcohol or drug abuse. [facility] Medical History History of alcohol abuse Polysubstance abuse Anxiety and depression Bipolar disorder Hepatitis C Home Medications ?Medication ?Instructions ?Recorded ?Last Taken ?Type amitriptyline 50 mg tablet 50 - 100 mg PO QHS sleep 12/29/16 Unknown History quetiapine 150 mg tablet,extended 300 mg PO QHS sleep 02/02/17 Unknown History release 24 hr gabapentin 300 mg capsule 300 mg PO TID anxiety/pain 05/15/18 Unknown History (Neurontin) Allergy/AdvReac Type Severity Reaction Status Date / Time No Known Allergies Allergy Verified 11/06/23 13:29 Family History Mother Heart disease Hypertension Father Heart disease Hypertension Surgical History S/P cosmetic plastic surgery Hx of breast implants, bilateral H/O gastric sleeve Social History household members: none Smoking Status: Current every day smoker tobacco type: cigarettes alcohol intake: current alcohol intake frequency: 3 or more drinks per day details: Hx heavy intake w/ 1L bourbon/day->now rare heavy intake, last weeks prior. substance use type: crack/cocaine, heroin, amphetamines, IV drugs and other details: Fentanyl, BZD also. ROS ROS ED Constitutional Constitutional ED: Reports other Details: Reports intermittent dizziness ; Denies chills or fever(s) Eyes Eyes: Denies blurry vision or change in vision ENT ENT ED: Reports other Details: Epistaxis, nose injury, upper right lip swelling Cardiovascular Cardiovascular: Denies chest pain or palpitations Gastrointestinal Gastrointestinal: Denies abdominal pain Musculoskeletal Musculoskeletal: Denies arthralgias, back pain, myalgias or neck pain Integumentary Denies Abrasions or rash Neurologic Neurologic: Denies headache(s), paresthesias or weakness Hematologic/Lymphatic Hematologic/Lymphatic: Denies easy bleeding or easy bruising EXAM Physical Exam Const Vital Signs: 11/06/23 13:28 11/06/23 13:28 Temperature 97.1 F L Temperature Source Temporal Pulse Rate 106 H 111 H Respiratory Rate 14 20 H Blood Pressure 162/101 H 159/110 H Blood Pressure Mean 121 126 Pulse Ox 100 100 Oxygen Delivery Method Room Air Positive well nourished and well developed General Appearance ED: well developed and NAD HEENT Reports moist mucous membranes HEENT Narrative: Soft tissue swelling and ecchymosis to the right upper lip. No dental fractures. Patient is missing her 6th tooth. No malocclusion or trismus appreciated. There is swelling and tenderness to the bridge of the nose. Nasal exam patient has a very large septal defect that is chronic appearing. I do not see any signs of bleeding. No blood noted in the oropharynx. Normal oropharyngeal exam. Eyes PERRL and EOMs intact bilaterally Neck supple General: Negative for tenderness Chest Wall inspection of chest normal and palpation of chest normal Resp normal respiratory effort and clear to auscultation bilaterally Cardio regular rate and regular rhythm GI normal to inspection, nondistended, normoactive bowel sounds and non-tender Extremity normal to inspection General Extremety ED: Negative for edema or tenderness General Extremity: Negative for edema Neuro oriented x3 and CN's II-XII intact bilaterally Sensorium / Orientation: alert Motor Exam: Negative for general weakness Psych mental status grossly normal Skin Skin Narrative: Small abrasion to the bridge of the nose, no active bleeding MDM MDM MDM Narrative Medical decision making narrative: Patient is evaluated for what sounds like a near syncopal episode where her head hit the counter. She sustained a nasal contusion and clinically I suspect she also has a small nasal fracture as well as a contusion to her upper lip. There is no need for any type of laceration repair. Discussed obtaining imaging of her nose however she is not have any type of airway occlusion and I do not think will pattern changer acutely. I told her clinically I do suspect nasal fracture and patient is satisfied with this. Will follow-up with her dentist as her bridge did break with his injury. I did offer workup looking for cause of this dizziness and near syncope especially given her injuries today. Patient is tachycardic and hypertensive in the emergency room. Patient declined further workup at this time stating that she thinks is just from her medications. Hypertensive in the emergency room. Patient declined further workup at this ti me stating that she thinks is just from her medications. Patient overall is acting appropriately and has capacity. She is encouraged to return to the emergency room should she change her mind and want workup or have a progression or worsening of her symptoms. Is given referral for plastic surgery given her nasal fracture . She is given return precautions. Discharged home in stable condition. Patient denies any concern for . Discharge Plan Triage Chief Complaint: Other, Pain/Inj ED Provider: Celine Li Dx/Rx/DC Orders Clinical Impression: Blunt trauma of nose, Contusion of lip, Near syncope Instructions: ED Facial Contusion, ED NASAL CONTUSION vs FX No X-ray, ED Near- Fainting, Uncertain Cause Prescriptions: No Action amitriptyline 50 MG tablet 50 - 100 mg PO QHS quetiapine 150 MG tablet extended release 24 hr 300 mg PO QHS Patient Comments: take 1 tablet by mouth at bedtime gabapentin [Neurontin] 300 MG capsule 300 mg PO TID Stand Alone Forms: ED Work / School Excuse Primary Care Provider: Garret Rees Referrals: Garret Rees MD [Primary Care Provider] - Levi Márquez MD [Med Staff - Active Staff] - 1-2 Weeks Activity Restrictions/Additional Instructions: Ice to areas of swelling. If you have further episodes of dizziness or continue to have these near syncopal episodes or actually pass out please return to the emergency room for further evaluation. Clinically do suspect possible nasal fracture. Print Language: Cymro Disposition Disposition: Home, Self Care
[2023-11-06 15:35] VITALS: BP 113/83; PULSE 81; RESP 16; TEMP 36.9; O2SAT 99
== END 2023-11-06 15:36 | disposition home or self-care (01) ==
PROVIDERS: Emergency Provider Emergency Medicine; PCP Family Medicine; Visit Provider Emergency Medicine
DX: R55 Syncope and collapse (principal); F31.9 Bipolar disorder, unspecified; S02.2XXA Fracture of nasal bones, initial encounter for closed fracture; S00.531A Contusion of lip, initial encounter; W01.198A Fall on same level from slipping, tripping and stumbling with subsequent striking against other object, initial encounter; B19.20 Unspecified viral hepatitis C without hepatic coma; F41.8 Other specified anxiety disorders; Z79.899 Other long term (current) drug therapy; F17.210 Nicotine dependence, cigarettes, uncomplicated
CPT/HCPCS: 99282